=== PATIENT | male | born 2000 | race Caucasian/White ===

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

== ENCOUNTER → 2022-08-24 | Outpatient (CLI) | payer OTHER ==
[~2022-08-24] MED LIST changes: -ACET-838 PO; +ACET32TAB PO
[2022-08-24 14:08] LABS: HEMATOCRIT 47.5 % (42.0-52.0); HEMOGLOBIN 15.7 g/dl (13.5-17.5); MEAN CORPUSCULAR HGB CONC 33.1 g/dl (32.0-36.5); MEAN CORPUSCULAR VOLUME 84.7 fl (80.0-96.0); PLATELET COUNT, AUTOMATED 296 10^3/uL (150-450); RED BLOOD COUNT 5.61 10^6/uL (4.30-6.10); WHITE BLOOD COUNT 9.2 10^3/uL (4.0-10.0)
[2022-08-24 14:36] LABS: HEMOGLOBIN A1c 4.7 % (4.0-6.0)
[2022-08-24 14:38] LABS: ALBUMIN 4.5 G/DL (3.2-5.2); ALKALINE PHOSPHATASE 77 U/L (46-116); ALT/SGPT 15 U/L (7.0-40); AST/SGOT 22 U/L (<34); BILIRUBIN,TOTAL 0.5 MG/DL (0.3-1.2); BLOOD UREA NITROGEN 11 MG/DL (9-23); CALCIUM LEVEL 9.7 MG/DL (8.5-10.1); CARBON DIOXIDE LEVEL 26 MMOL/L (20-31); CHLORIDE LEVEL 105 MMOL/L (98-107); CHOLESTEROL LEVEL 129 MG/DL (<200); CHOLESTEROL RISK RATIO 3.01 (<5); CREATININE FOR GFR 0.94 MG/DL (0.70-1.30); GLUCOSE, FASTING 86 MG/DL (60-100); HDL CHOLESTEROL 42.8 MG/DL (>40); LDL CHOLESTEROL 72.4 MG/DL (<100); NON-HDL-C 86 MG/DL; POTASSIUM SERUM 3.9 MMOL/L (3.5-5.1); SODIUM LEVEL 140 MMOL/L (136-145); TOTAL 25(OH) VITAMIN D 36.6 NG/ML (20.0-100.0); TOTAL PROTEIN 7.3 G/DL (5.7-8.2); TRIGLYCERIDES LEVEL 69 MG/DL (<150)
[2022-08-24 14:39] LABS: THYROID STIMULATING HORMONE 1.478 uIU/ML (0.48-4.17)
== END ==
LOC: M LAB 13:44
PROVIDERS: ATTEND Family Medicine
DX: D64.9 Anemia, unspecified (principal); R53.83 Other fatigue

== ENCOUNTER 2022-11-20 19:11 | Emergency (ER) | payer OTHER ==
[~2022-11-20] VITALS: Ht 177.8 cm; Wt 74.7 kg
[2022-11-20 21:04] LABS: BASO % 0.3 % (0.0-1.0); EOS # 0.1 10^3/uL (0.0-0.5); EOS % 0.5 % (0.0-3.0); HEMATOCRIT 47.3 % (42.0-52.0); HEMOGLOBIN 16.2 g/dl (13.5-17.5); LYMPH % 17.2 % (24.0-44.0); MEAN CORPUSCULAR HEMOGLOBIN 27.9 pg (27.0-33.0); MEAN CORPUSCULAR HGB CONC 34.2 g/dl (32.0-36.5); MEAN CORPUSCULAR VOLUME 81.4 fl (80.0-96.0); MONO # 0.9 10^3/uL (0.0-0.8); MONO % 7.8 % (2.0-8.0); NEUTROPHILS # 8.7 10^3/uL (1.5-8.5); NEUTROPHILS % 73.9 % (36.0-66.0); PLATELET COUNT, AUTOMATED 310 10^3/uL (150-450); RED BLOOD COUNT 5.81 10^6/uL (4.30-6.10); WHITE BLOOD COUNT 11.8 10^3/uL (4.0-10.0)
[2022-11-20 21:22] LABS: LIPASE 24 U/L (12-53)
[2022-11-20 21:23] LABS: CK-MB VALUE MASS < 1.0 NG/ML (<3.6)
[2022-11-20 21:25] LABS: ALBUMIN 4.9 G/DL (3.2-5.2); ALKALINE PHOSPHATASE 79 U/L (46-116); ALT/SGPT 15 U/L (7.0-40); AST/SGOT < 8 U/L (<34); BILIRUBIN,DIRECT 0.2 MG/DL (<0.4); BILIRUBIN,TOTAL 0.6 MG/DL (0.3-1.2); BLOOD UREA NITROGEN 11 MG/DL (9-23); CALCIUM LEVEL 9.8 MG/DL (8.5-10.1); CARBON DIOXIDE LEVEL 26 MMOL/L (20-31); CHLORIDE LEVEL 103 MMOL/L (98-107); CREATININE FOR GFR 0.94 MG/DL (0.70-1.30); GLUCOSE, FASTING 86 MG/DL (60-100); POTASSIUM SERUM 3.8 MMOL/L (3.5-5.1); SODIUM LEVEL 139 MMOL/L (136-145); TOTAL PROTEIN 7.9 G/DL (5.7-8.2)
[2022-11-20 21:26] LABS: THYROID STIMULATING HORMONE 1.922 uIU/ML (0.48-4.17)
[2022-11-20 21:32] LABS: CPK CREATINE PHOSPHOKINASE 170 U/L (46-171); MB/CK RELATIVE INDEX 0.58 (< OR =4)
[2022-11-20 22:34] LABS: CK-MB VALUE MASS < 1.0 NG/ML (<3.6)
[2022-11-20 22:51] LABS: CPK CREATINE PHOSPHOKINASE 168 U/L (46-171); MB/CK RELATIVE INDEX 0.59 (< OR =4)
[2022-11-21 00:33] LABS: CPK CREATINE PHOSPHOKINASE 112 U/L (46-171)
[2022-11-21 00:35] LABS: CK-MB VALUE MASS < 1.0 NG/ML (<3.6); MB/CK RELATIVE INDEX 0.89 (< OR =4)
[2022-11-21 01:11] VITALS: BP 132/67
== END 2022-11-21 01:58 | disposition home or self-care (01) ==
LOC: M ED 19:11
DX: R07.9 Chest pain, unspecified (principal); F17.200 Nicotine dependence, unspecified, uncomplicated

== ENCOUNTER → 2023-01-08 | Outpatient (CLI) | payer MEDICAID ==
[~2023-01-08] MED LIST changes: +CITA20TA6 PO; +MELA5CAP2 PO; +PROP40TA62 PO
== END ==
LOC: M OUTALCOH 09:06
PROVIDERS: ATTEND Psychiatry & Neurology Psychiatry
DX: F10.10 Alcohol abuse, uncomplicated (principal)

== ENCOUNTER 2023-01-11 16:39 | Inpatient (IN) | payer MEDICAID ==
[~2023-01-11] VITALS: Ht 180.3 cm; Wt 71.1 kg
[~2023-01-11 16:39] MED LIST changes: -CITA20TA6 PO; -MELA5CAP2 PO; -PROP40TA62 PO
[2023-01-11 17:40] LABS: HEMATOCRIT 43.2 % (42.0-52.0); HEMOGLOBIN 14.9 g/dl (13.5-17.5); MEAN CORPUSCULAR HEMOGLOBIN 27.9 pg (27.0-33.0); MEAN CORPUSCULAR HGB CONC 34.5 g/dl (32.0-36.5); MEAN CORPUSCULAR VOLUME 80.9 fl (80.0-96.0); PLATELET COUNT, AUTOMATED 398 10^3/uL (150-450); RED BLOOD COUNT 5.34 10^6/uL (4.30-6.10)
[2023-01-11] MEDS ORDERED: HALOPERIDOL 5MG/ML 1ML VIAL As Ordered ONE (17:49)
[2023-01-11] MEDS ORDERED: LORazepam 2 MG/ML 1ML VIAL IM STA (17:49)
[2023-01-11] MEDS ORDERED: HALOPERIDOL 5MG/ML 1ML VIAL IM ONE (17:50)
[2023-01-11] MEDS ORDERED: LORazepam 2 MG/ML 1ML VIAL As Ordered ONE (17:50)
[2023-01-11 18:02] LABS: ETHYL ALCOHOL (ETHANOL) 0.191 % (0.000-0.010)
[2023-01-11 18:04] LABS: ACETAMINOPHEN LEVEL < 2.0 UG/ML (10.0-20.0); ALKALINE PHOSPHATASE 75 U/L (46-116); ALT/SGPT 31 U/L (7.0-40); AST/SGOT 35 U/L (<34); BILIRUBIN,DIRECT 0.2 MG/DL (<0.4); BILIRUBIN,TOTAL 0.6 MG/DL (0.3-1.2); BLOOD UREA NITROGEN 8 MG/DL (9-23); CARBON DIOXIDE LEVEL 21 MMOL/L (20-31); CHLORIDE LEVEL 103 MMOL/L (98-107); GLOMERULAR FILTRATION RATE > 60.0 (>60); GLUCOSE, FASTING 107 MG/DL (60-100); POTASSIUM SERUM 3.7 MMOL/L (3.5-5.1); SALICYLATE LEVEL < 3.0 MG/DL (<30); SODIUM LEVEL 141 MMOL/L (136-145); TOTAL PROTEIN 7.6 G/DL (5.7-8.2)
[2023-01-11 18:06] LABS: THYROID STIMULATING HORMONE 2.926 uIU/ML (0.55-4.78)
[2023-01-11 18:51] LABS: AMPHETAMINES LEVEL URINE NEGATIVE (NEGATIVE); BENZODIAZEPINES URINE NEGATIVE (NEGATIVE); METHADONE URINE NEGATIVE (NEGATIVE); OPIATES URINE NEGATIVE (NEGATIVE); PHENCYCLIDINE URINE NEGATIVE (NEGATIVE)
[2023-01-11 18:52] LABS: BARBITURATES URINE NEGATIVE (NEGATIVE); COCAINE METABOLITE URINE NEGATIVE (NEGATIVE)
[2023-01-11 18:55] LABS: CANNABINOIDS URINE POSITIVE (NEGATIVE)
[2023-01-11] MEDS ORDERED: CITA20TA6 PO (19:19)
[2023-01-11] MEDS ORDERED: PROP40TA62 PO (19:20)
[2023-01-12] MEDS ORDERED: MELA5CAP2 PO (06:20)
[2023-01-12] MEDS ORDERED: HOME MED LIST COMPLETE! XX SCH (06:20)
[2023-01-12] MEDS: THIAMINE 100 MG TAB PO SCH ×2 (09:00→20:46)
[2023-01-12] MEDS ORDERED: LORazepam 2 MG TAB PO PRN (12:45)
[2023-01-12] MEDS: CitaloPRAM (CeleXA) 20 MG TAB PO SCH (17:43)
[2023-01-12] MEDS: FOLIC ACID 1MG TAB PO SCH (17:43)
[2023-01-12] MEDS: MULTIVITAMINS/MINERALS THERAP 1 TAB PO SCH (17:43)
[2023-01-12] MEDS: traZODone 50 MG TAB PO PRN (20:46)
[2023-01-12 22:30] VITALS: BP 141/80
[2023-01-13 06:31] VITALS: BP 148/72; TEMP 98.4; O2SAT 98
[2023-01-13 06:34] VITALS: BP 148/72
[2023-01-13] MEDS: FOLIC ACID 1MG TAB PO SCH (08:18)
[2023-01-13] MEDS: CitaloPRAM (CeleXA) 20 MG TAB PO SCH (08:18)
[2023-01-13] MEDS: MULTIVITAMINS/MINERALS THERAP 1 TAB PO SCH (08:18)
[2023-01-13] MEDS: THIAMINE 100 MG TAB PO SCH ×2 (08:18→20:36)
[2023-01-13 10:02] LABS: HEPATITIS B SURFACE ANTIGEN NEGATIVE (NEGATIVE)
[2023-01-13 10:23] LABS: HEPATITIS C VIRUS ABY INDEX 0.1 INDEX (<0.8)
[2023-01-13 10:24] LABS: HEPATITIS B CORE ANTIBODY IGM NEGATIVE (NEGATIVE)
[2023-01-13 14:41] VITALS: BP 138/89
[2023-01-13 15:50] VITALS: BP 138/89; TEMP 98; O2SAT 100
[2023-01-13] MEDS: ARIPiprazole 2 MG TAB PO SCH (20:36)
[2023-01-13] MEDS: traZODone 50 MG TAB PO PRN (21:16)
[2023-01-14 05:37] VITALS: BP 132/74
[2023-01-14] MEDS ORDERED: ONDANSETRON 4MG ORAL DISINTEGRATING TAB PO PRN (06:00)
[2023-01-14 06:44] LABS: CHOLESTEROL RISK RATIO 1.9 (<5); HDL CHOLESTEROL 57.8 MG/DL (>40); NON-HDL-C 52.2 MG/DL
[2023-01-14] MEDS: FOLIC ACID 1MG TAB PO SCH (09:07)
[2023-01-14] MEDS: THIAMINE 100 MG TAB PO SCH (09:07)
[2023-01-14] MEDS: MULTIVITAMINS/MINERALS THERAP 1 TAB PO SCH (09:07)
[2023-01-14] MEDS: CitaloPRAM (CeleXA) 20 MG TAB PO SCH (09:07)
[2023-01-14 18:37] VITALS: BP 139/97; TEMP 98.2; O2SAT 100
[2023-01-14] MEDS: ARIPiprazole 2 MG TAB PO SCH (20:05)
[2023-01-14] MEDS: traZODone 50 MG TAB PO PRN (22:15)
[2023-01-14] MEDS: diphenhydrAMINE 25MG CAP PO PRN (22:15)
[2023-01-15 06:01] VITALS: BP 137/77; TEMP 98; O2SAT 100
[2023-01-15] MEDS: FOLIC ACID 1MG TAB PO SCH (08:08)
[2023-01-15] MEDS: CitaloPRAM (CeleXA) 20 MG TAB PO SCH (08:08)
[2023-01-15] MEDS ORDERED: PILL CUTTER 1 EACH XX PRN (09:30)
[2023-01-15] MEDS: busPIRone 5 MG TAB PO SCH ×2 (09:48→21:29)
[2023-01-15 16:10] VITALS: BP 134/78; TEMP 97.9; O2SAT 100
[2023-01-15] MEDS: diphenhydrAMINE 25MG CAP PO PRN (16:32)
[2023-01-15] MEDS: IBUPROFEN 400MG TAB PO PRN (16:45)
[2023-01-15] MEDS: traZODone 50 MG TAB PO PRN (22:57)
[2023-01-16 06:20] VITALS: BP 154/89; TEMP 96.7; O2SAT 97
[2023-01-16] MEDS: FOLIC ACID 1MG TAB PO SCH (08:26)
[2023-01-16] MEDS: CitaloPRAM (CeleXA) 20 MG TAB PO SCH (08:26)
[2023-01-16] MEDS: busPIRone 5 MG TAB PO SCH ×2 (08:27→20:48)
[2023-01-16] MEDS: IBUPROFEN 400MG TAB PO PRN (11:02)
[2023-01-16] MEDS: diphenhydrAMINE 25MG CAP PO PRN (15:31)
[2023-01-16 16:19] VITALS: BP 148/91; TEMP 97.8; O2SAT 100
[2023-01-16] MEDS: traZODone 50 MG TAB PO PRN (23:06)
[2023-01-17 06:40] VITALS: BP 146/80; TEMP 96.9; O2SAT 100
[2023-01-17] MEDS: FOLIC ACID 1MG TAB PO SCH (08:20)
[2023-01-17] MEDS: busPIRone 5 MG TAB PO SCH (08:20)
[2023-01-17] MEDS: CitaloPRAM (CeleXA) 20 MG TAB PO SCH (08:21)
[2023-01-17] MEDS: diphenhydrAMINE 25MG CAP PO PRN ×2 (10:32→22:43)
[2023-01-17 11:30] VITALS: BP 162/90; O2SAT 100
[2023-01-17] MEDS: cloNIDine 0.1MG TABLET PO PRN ×2 (12:06→19:13)
[2023-01-17 16:24] VITALS: BP 140/88; TEMP 97.6; O2SAT 100
[2023-01-17 19:12] VITALS: BP 160/98
[2023-01-17] MEDS: traZODone 50 MG TAB PO PRN (20:45)
[2023-01-17] MEDS: busPIRone 10 MG TAB PO SCH (20:45)
[2023-01-17] MEDS: IBUPROFEN 400MG TAB PO PRN (22:43)
[2023-01-18 06:33] VITALS: BP 139/63; TEMP 97.9; O2SAT 99
[2023-01-18] MEDS: busPIRone 10 MG TAB PO SCH ×2 (08:07→20:00)
[2023-01-18] MEDS: FOLIC ACID 1MG TAB PO SCH (08:07)
[2023-01-18] MEDS ORDERED: CitaloPRAM (CeleXA) 10 MG TABLET PO SCH (09:00)
[2023-01-18] MEDS: OLANZapine 2.5MG TABLET PO SCH ×2 (10:21→20:00)
[2023-01-18] MEDS: OLANZapine ORAL DISINTEGRATING TAB 5MG PO PRN (12:11)
[2023-01-18 18:00] VITALS: BP 136/76; TEMP 97.6; O2SAT 100
[2023-01-18] MEDS: MOM 30ML SUSPENSION UDC PO PRN (20:00)
[2023-01-18] MEDS: traZODone 50 MG TAB PO PRN (22:31)
[2023-01-19 05:41] VITALS: BP 148/88; TEMP 97; O2SAT 97
[2023-01-19] MEDS: busPIRone 10 MG TAB PO SCH ×2 (08:05→20:01)
[2023-01-19] MEDS: FOLIC ACID 1MG TAB PO SCH (08:06)
[2023-01-19] MEDS: OLANZapine 2.5MG TABLET PO SCH (08:06)
[2023-01-19] MEDS ORDERED: CitaloPRAM (CeleXA) 10 MG TABLET PO SCH (09:00)
[2023-01-19] MEDS: OLANZapine ORAL DISINTEGRATING TAB 5MG PO PRN ×2 (09:19→15:46)
[2023-01-19] MEDS ORDERED: DIVALPROEX 250MG *ER* TAB PO PRN (09:50)
[2023-01-19 17:45] VITALS: BP 140/70; TEMP 97.2
[2023-01-19] MEDS ORDERED: OLANZapine 2.5MG TABLET PO SCH (21:00)
[2023-01-19] MEDS: MAALOX 30 ML SUSP *UDC PO PRN (21:31)
[2023-01-19] MEDS: traZODone 50 MG TAB PO PRN (22:08)
[2023-01-20 05:54] VITALS: BP 131/90; TEMP 97.8; O2SAT 100
[2023-01-20] MEDS: busPIRone 10 MG TAB PO SCH ×2 (08:05→20:08)
[2023-01-20] MEDS: FOLIC ACID 1MG TAB PO SCH (08:05)
[2023-01-20] MEDS: OLANZapine ORAL DISINTEGRATING TAB 5MG PO PRN ×2 (08:05→16:47)
[2023-01-20] MEDS: DIVALPROEX 250MG *ER* TAB PO SCH (09:30)
[2023-01-20] MEDS: MAALOX 30 ML SUSP *UDC PO PRN (14:05)
[2023-01-20 17:48] VITALS: BP 150/89; TEMP 97.4
[2023-01-20 19:10] VITALS: BP 157/80
[2023-01-20] MEDS: cloNIDine 0.1MG TABLET PO PRN (19:10)
[2023-01-20] MEDS: OLANZapine 2.5MG TABLET PO SCH (20:08)
[2023-01-20] MEDS: traZODone 50 MG TAB PO PRN (20:59)
[2023-01-20] MEDS ORDERED: diphenhydrAMINE 50MG CAP PO ONE (21:00)
[2023-01-20] MEDS ORDERED: LORazepam 2 MG TAB PO ONE (21:00)
[2023-01-21] MEDS: DIVALPROEX 250MG *ER* TAB PO SCH (08:29)
[2023-01-21] MEDS: busPIRone 10 MG TAB PO SCH ×2 (08:29→20:30)
[2023-01-21] MEDS: FOLIC ACID 1MG TAB PO SCH (08:29)
[2023-01-21] MEDS: BENZTROPINE 1 MG TAB PO SCH ×2 (10:47→20:30)
[2023-01-21 16:45] VITALS: BP 152/94; TEMP 97.4; O2SAT 98
[2023-01-21] MEDS: OLANZapine ORAL DISINTEGRATING TAB 5MG PO PRN (19:23)
[2023-01-21] MEDS: OLANZapine 2.5MG TABLET PO SCH (20:30)
[2023-01-21] MEDS: MAALOX 30 ML SUSP *UDC PO PRN (21:27)
[2023-01-21] MEDS: traZODone 50 MG TAB PO PRN (22:04)
[2023-01-22 06:26] VITALS: BP 108/62; TEMP 97.7; O2SAT 97
[2023-01-22] MEDS: BENZTROPINE 1 MG TAB PO SCH ×2 (08:13→20:02)
[2023-01-22] MEDS: busPIRone 10 MG TAB PO SCH ×2 (08:13→20:02)
[2023-01-22] MEDS: OLANZapine ORAL DISINTEGRATING TAB 5MG PO PRN ×2 (08:14→21:28)
[2023-01-22] MEDS: DIVALPROEX 250MG *ER* TAB PO SCH (08:14)
[2023-01-22] MEDS: FOLIC ACID 1MG TAB PO SCH (08:14)
[2023-01-22 17:52] VITALS: BP 162/83; TEMP 97.9; O2SAT 96
[2023-01-22] MEDS: MAALOX 30 ML SUSP *UDC PO PRN (19:36)
[2023-01-22] MEDS: OLANZapine 2.5MG TABLET PO SCH (20:02)
[2023-01-22] MEDS: traZODone 50 MG TAB PO PRN (22:18)
[2023-01-22] MEDS: ACETAMINOPHEN TAB 650MG DOSE (2X325MG) PO PRN (22:19)
[2023-01-23 06:22] VITALS: BP 127/65; TEMP 97.8; O2SAT 100
[2023-01-23] MEDS: DIVALPROEX 250MG *ER* TAB PO SCH (08:02)
[2023-01-23] MEDS: BENZTROPINE 1 MG TAB PO SCH ×2 (08:02→20:15)
[2023-01-23] MEDS: FOLIC ACID 1MG TAB PO SCH (08:03)
[2023-01-23] MEDS: busPIRone 10 MG TAB PO SCH ×2 (08:03→20:15)
[2023-01-23] MEDS: OLANZapine ORAL DISINTEGRATING TAB 5MG PO PRN (11:25)
[2023-01-23 18:00] VITALS: BP 144/84; TEMP 97.1
[2023-01-23] MEDS: OLANZapine 2.5MG TABLET PO SCH (20:15)
[2023-01-23] MEDS: traZODone 50 MG TAB PO PRN (22:16)
[2023-01-23] MEDS: IBUPROFEN 400MG TAB PO PRN (22:17)
[2023-01-24 06:47] VITALS: BP 155/71; TEMP 97.8; O2SAT 99
[2023-01-24] MEDS: DIVALPROEX 250MG *ER* TAB PO SCH (08:02)
[2023-01-24] MEDS: busPIRone 10 MG TAB PO SCH ×2 (08:02→20:18)
[2023-01-24] MEDS: BENZTROPINE 1 MG TAB PO SCH ×2 (08:02→20:18)
[2023-01-24] MEDS: FOLIC ACID 1MG TAB PO SCH (08:02)
[2023-01-24] MEDS: OLANZapine ORAL DISINTEGRATING TAB 5MG PO PRN (11:36)
[2023-01-24 18:00] VITALS: BP 150/78; TEMP 98.1
[2023-01-24] MEDS: OLANZapine 2.5MG TABLET PO SCH (20:18)
[2023-01-24] MEDS: traZODone 50 MG TAB PO PRN (21:58)
[2023-01-25 06:45] VITALS: BP 125/74; TEMP 97.6; O2SAT 96
[2023-01-25] MEDS: busPIRone 10 MG TAB PO SCH ×2 (08:13→20:03)
[2023-01-25] MEDS: DIVALPROEX 250MG *ER* TAB PO SCH (08:13)
[2023-01-25] MEDS: FOLIC ACID 1MG TAB PO SCH (08:13)
[2023-01-25] MEDS: BENZTROPINE 1 MG TAB PO SCH ×2 (08:13→20:03)
[2023-01-25 15:00] VITALS: BP 139/80; TEMP 98.6; O2SAT 96
[2023-01-25] MEDS: OLANZapine 5 MG TAB PO SCH (20:03)
[2023-01-25] MEDS: ACETAMINOPHEN TAB 650MG DOSE (2X325MG) PO PRN (21:52)
[2023-01-25] MEDS: traZODone 50 MG TAB PO PRN (21:52)
[2023-01-26] MEDS: IBUPROFEN 400MG TAB PO PRN (05:36)
[2023-01-26 06:48] VITALS: BP 143/90; TEMP 97.6; O2SAT 98
[2023-01-26] MEDS: busPIRone 10 MG TAB PO SCH ×2 (08:44→20:08)
[2023-01-26] MEDS: FOLIC ACID 1MG TAB PO SCH (08:44)
[2023-01-26] MEDS: DIVALPROEX 250MG *ER* TAB PO SCH (08:44)
[2023-01-26] MEDS: BENZTROPINE 1 MG TAB PO SCH ×2 (08:44→20:08)
[2023-01-26 16:42] VITALS: BP 140/88; TEMP 98.3; O2SAT 100
[2023-01-26] MEDS: OLANZapine 5 MG TAB PO SCH (20:09)
[2023-01-26] MEDS: traZODone 50 MG TAB PO PRN (22:36)
[2023-01-27] MEDS: MOM 30ML SUSPENSION UDC PO PRN (05:52)
[2023-01-27 06:43] VITALS: BP 150/71; TEMP 97.1; O2SAT 100
[2023-01-27] MEDS: BENZTROPINE 1 MG TAB PO SCH ×2 (08:29→20:09)
[2023-01-27] MEDS: busPIRone 10 MG TAB PO SCH ×2 (08:29→20:09)
[2023-01-27] MEDS: FOLIC ACID 1MG TAB PO SCH (08:29)
[2023-01-27] MEDS ORDERED: DIVALPROEX 250MG *ER* TAB PO SCH (09:00)
[2023-01-27] MEDS: ACETAMINOPHEN TAB 650MG DOSE (2X325MG) PO PRN (13:59)
[2023-01-27] MEDS ORDERED: PREPARATION H OINTMENT (HEMORRHOID) PR PRN (16:40)
[2023-01-27 16:42] VITALS: BP 136/64; TEMP 98.3; O2SAT 100
[2023-01-27] MEDS: OLANZapine 5 MG TAB PO SCH (20:09)
[2023-01-28] MEDS: IBUPROFEN 400MG TAB PO PRN ×2 (04:22→20:16)
[2023-01-28 06:24] VITALS: BP 135/67; TEMP 97.9; O2SAT 100
[2023-01-28] MEDS: busPIRone 10 MG TAB PO SCH ×2 (08:28→20:14)
[2023-01-28] MEDS: FOLIC ACID 1MG TAB PO SCH (08:28)
[2023-01-28] MEDS: BENZTROPINE 1 MG TAB PO SCH ×2 (08:28→20:14)
[2023-01-28] MEDS: DIVALPROEX 500MG *ER* TAB PO SCH (08:58)
[2023-01-28 18:52] VITALS: BP 138/78; TEMP 97.6
[2023-01-28] MEDS: OLANZapine 5 MG TAB PO SCH (20:14)
[2023-01-28] MEDS: MAALOX 30 ML SUSP *UDC PO PRN (22:12)
[2023-01-28] MEDS: traZODone 50 MG TAB PO PRN (22:32)
[2023-01-29 06:15] VITALS: BP 135/82; TEMP 97.5; O2SAT 99
[2023-01-29] MEDS: DIVALPROEX 500MG *ER* TAB PO SCH (08:07)
[2023-01-29] MEDS: busPIRone 10 MG TAB PO SCH (08:07)
[2023-01-29] MEDS: FOLIC ACID 1MG TAB PO SCH (08:07)
[2023-01-29] MEDS: BENZTROPINE 1 MG TAB PO SCH (08:07)
[2023-01-29] MEDS ORDERED: TRAZ-252 PO (12:08)
[2023-01-29] MEDS ORDERED: OLAN15TA13 PO (12:08)
[2023-01-29] MEDS ORDERED: BENZ1TAB5 PO (12:08)
[2023-01-29] MEDS ORDERED: DEPA500T2 PO (12:08)
[2023-01-29] MEDS ORDERED: BUSP10TA PO (12:08)
[2023-01-29] MEDS ORDERED: HALO5TAB33 PO (12:08)
== END 2023-01-29 14:34 | disposition home or self-care (01) | DRG 753 ==
LOC: M ED 16:39 → M ED INP 01-12 12:42 → M PSY 01-12 16:06
PROVIDERS: ADMIT Student in an Organized Health Care Education/Training Program; ATTEND Student in an Organized Health Care Education/Training Program
DX: F31.60 Bipolar disorder, current episode mixed, unspecified (principal); F43.9 Reaction to severe stress, unspecified; F60.89 Other specific personality disorders; F41.9 Anxiety disorder, unspecified; F12.10 Cannabis abuse, uncomplicated; G47.00 Insomnia, unspecified; R45.851 Suicidal ideations; R45.850 Homicidal ideations; F17.210 Nicotine dependence, cigarettes, uncomplicated; Z81.8 Family history of other mental and behavioral disorders; R94.5 Abnormal results of liver function studies; F10.10 Alcohol abuse, uncomplicated; Z20.822 Contact with and (suspected) exposure to COVID-19; Z79.899 Other long term (current) drug therapy; Z78.1 Physical restraint status

== ENCOUNTER 2023-12-02 14:56 | Inpatient (IN) | payer MEDICAID, OTHER ==
[~2023-12-02] VITALS: Ht 180.3 cm; Wt 89.9 kg
[~2023-12-02 14:56] MED LIST changes: +BENZ1TAB5 PO; +BUSP10TA PO; +CITA20TA6 PO; +DEPA500T2 PO; +HALO5TAB33 PO; +MELA5CAP2 PO; +OLAN15TA13 PO; +PROP40TA62 PO; +TRAZ-252 PO
[2023-12-02 15:52] LABS: HEMATOCRIT 47.5 % (42.0-52.0); HEMOGLOBIN 16.1 g/dl (13.5-17.5); MEAN CORPUSCULAR HEMOGLOBIN 27.2 pg (27.0-33.0); MEAN CORPUSCULAR HGB CONC 33.9 g/dl (32.0-36.5); MEAN CORPUSCULAR VOLUME 80.4 fl (80.0-96.0); PLATELET COUNT, AUTOMATED 338 10^3/uL (150-450); RED BLOOD COUNT 5.91 10^6/uL (4.30-6.10); WHITE BLOOD COUNT 6.4 10^3/uL (4.0-10.0)
[2023-12-02 16:17] LABS: AMPHETAMINES LEVEL URINE NEGATIVE (NEGATIVE)
[2023-12-02 16:18] LABS: BARBITURATES URINE NEGATIVE (NEGATIVE); COCAINE METABOLITE URINE NEGATIVE (NEGATIVE)
[2023-12-02 16:19] LABS: BENZODIAZEPINES URINE NEGATIVE (NEGATIVE); CANNABINOIDS URINE POSITIVE (NEGATIVE); METHADONE URINE NEGATIVE (NEGATIVE); OPIATES URINE NEGATIVE (NEGATIVE); PHENCYCLIDINE URINE NEGATIVE (NEGATIVE)
[2023-12-02 16:20] LABS: ETHYL ALCOHOL (ETHANOL) 0.003 % (0.000-0.010)
[2023-12-02 16:22] LABS: ALBUMIN 4.7 G/DL (3.2-5.2); ALKALINE PHOSPHATASE 71 U/L (46-116); ALT/SGPT 21 U/L (7.0-40); AST/SGOT 15 U/L (<34); BILIRUBIN,DIRECT 0.2 MG/DL (<0.4); BILIRUBIN,TOTAL 0.5 MG/DL (0.3-1.2); BLOOD UREA NITROGEN 6 MG/DL (9-23); CALCIUM LEVEL 10.2 MG/DL (8.5-10.1); CARBON DIOXIDE LEVEL 27 MMOL/L (20-31); CHLORIDE LEVEL 102 MMOL/L (98-107); CREATININE FOR GFR 0.81 MG/DL (0.70-1.30); GLOMERULAR FILTRATION RATE > 60.0 (>60); GLUCOSE, FASTING 113 MG/DL (60-100); POTASSIUM SERUM 3.6 MMOL/L (3.5-5.1); SALICYLATE LEVEL < 3.0 MG/DL (<30); SODIUM LEVEL 139 MMOL/L (136-145); TOTAL PROTEIN 7.6 G/DL (5.7-8.2)
[2023-12-02 16:23] LABS: THYROID STIMULATING HORMONE 1.048 uIU/ML (0.55-4.78)
[2023-12-02] MEDS ORDERED: MOM 30ML SUSPENSION UDC PO PRN (18:00)
[2023-12-02] MEDS ORDERED: IBUPROFEN 400MG TAB PO PRN (18:00)
[2023-12-02] MEDS ORDERED: diphenhydrAMINE 25MG CAP PO PRN (18:00)
[2023-12-02] MEDS ORDERED: OLANZapine ORAL DISINTEGRATING TAB 5MG PO PRN (18:00)
[2023-12-02] MEDS ORDERED: MAALOX 30 ML SUSP *UDC PO PRN (18:00)
[2023-12-02] MEDS ORDERED: ACETAMINOPHEN TAB 650MG DOSE (2X325MG) PO PRN (18:00)
[2023-12-02] MEDS ORDERED: HOME MED LIST COMPLETE! XX SCH (19:25)
[2023-12-02 22:04] VITALS: BP 132/74; TEMP 98.2; O2SAT 100
[2023-12-02] MEDS: traZODone 50 MG TAB PO PRN (23:14)
[2023-12-03 06:11] VITALS: BP 127/77; TEMP 98.6
[2023-12-03] MEDS: PALIPERIDONE 3MG ER TAB (INVEGA) PO SCH (11:17)
[2023-12-03] MEDS: DIVALPROEX 250MG *ER* TAB PO SCH (11:17)
[2023-12-03] MEDS: INFLUENZA QUADRIVALENT PF VACCINE 0.5ML SYRINGE IM.IMMUN ONE (15:39)
[2023-12-03 17:19] VITALS: BP 142/82; TEMP 98.4; O2SAT 100
[2023-12-04 06:25] VITALS: BP 114/55; TEMP 98.2; O2SAT 99
[2023-12-04 07:35] LABS: CHOLESTEROL RISK RATIO 3.2 (<5); HDL CHOLESTEROL 29.6 MG/DL (>40); LDL CHOLESTEROL 53.6 MG/DL (<100); NON-HDL-C 65.4 MG/DL
[2023-12-04] MEDS: PALIPERIDONE PAL 234MG/1.5ML INJ (INVEGA)(FREE PSY INPT ONLY) IM ONE (13:07)
[2023-12-04 15:49] VITALS: BP 135/78; TEMP 98.3; O2SAT 96
[2023-12-05 06:25] VITALS: BP 151/78; TEMP 98.2; O2SAT 98
[2023-12-05] MEDS ORDERED: BENZOCAINE 20% GEL 9GM TUBE (ANBESOL MAX STRENGTH) TOP PRN (17:05)
[2023-12-05 18:11] VITALS: BP 147/87; TEMP 98.2; O2SAT 100
[2023-12-06 06:30] VITALS: BP 160/98; TEMP 97.7; O2SAT 99
[2023-12-06] MEDS: DIVALPROEX 500MG *ER* TAB PO SCH (08:09)
[2023-12-06 18:21] VITALS: BP 138/83; TEMP 98.4
[2023-12-07 06:13] VITALS: BP 135/65; TEMP 97.3; O2SAT 100
[2023-12-07] MEDS ORDERED: ANBE20GE TOP (09:44)
[2023-12-07] MEDS ORDERED: INVE234I IM (09:44)
[2023-12-07] MEDS ORDERED: HYDR-3363 PO (09:44)
[2023-12-07] MEDS: PALIPERIDONE PAL 156MG/1ML INJ(INVEGA)(FREE PSY INPT ONLY) IM ONE (09:55)
== END 2023-12-07 12:43 | disposition home or self-care (01) | DRG 753 ==
LOC: M ED 14:56 → M ED INP 18:00 → M PSY 22:03
PROVIDERS: ADMIT Student in an Organized Health Care Education/Training Program; ATTEND Student in an Organized Health Care Education/Training Program
DX: F31.9 Bipolar disorder, unspecified (principal); F41.9 Anxiety disorder, unspecified; R45.851 Suicidal ideations; F12.10 Cannabis abuse, uncomplicated; F43.9 Reaction to severe stress, unspecified; F17.200 Nicotine dependence, unspecified, uncomplicated; Z56.0 Unemployment, unspecified

== ENCOUNTER → 2024-04-13 | Outpatient (CLI) | payer MEDICAID, OTHER ==
[~2024-04-13] MED LIST changes: +ANBE20GE TOP; +HYDR-3363 PO; +INVE234I IM
[2024-04-13 14:40] LABS: HEMATOCRIT 45.7 % (42.0-52.0); HEMOGLOBIN 15.3 g/dl (13.5-17.5); MEAN CORPUSCULAR HEMOGLOBIN 28.3 pg (27.0-33.0); MEAN CORPUSCULAR HGB CONC 33.5 g/dl (32.0-36.5); MEAN CORPUSCULAR VOLUME 84.6 fl (80.0-96.0); PLATELET COUNT, AUTOMATED 244 10^3/uL (150-450); WHITE BLOOD COUNT 5.8 10^3/uL (4.0-10.0)
[2024-04-13 15:08] LABS: ALBUMIN 3.9 G/DL (3.2-5.2); ALKALINE PHOSPHATASE 81 U/L (46-116); ALT/SGPT 19 U/L (7.0-40); AST/SGOT 12 U/L (<34); BILIRUBIN,TOTAL 0.3 MG/DL (0.3-1.2); BLOOD UREA NITROGEN 12 MG/DL (9-23); CARBON DIOXIDE LEVEL 28 MMOL/L (20-31); CHLORIDE LEVEL 108 MMOL/L (98-107); CHOLESTEROL LEVEL 169 MG/DL (<200); CHOLESTEROL RISK RATIO 3.82 (<5); CREATININE FOR GFR 1.04 MG/DL (0.70-1.30); GLOMERULAR FILTRATION RATE > 60.0 (>60); GLUCOSE, FASTING 90 MG/DL (60-100); HDL CHOLESTEROL 44.2 MG/DL (>40); LDL CHOLESTEROL 103.8 MG/DL (<100); NON-HDL-C 124.8 MG/DL; POTASSIUM SERUM 4.5 MMOL/L (3.5-5.1); SODIUM LEVEL 140 MMOL/L (136-145); TOTAL PROTEIN 7.1 G/DL (5.7-8.2); TRIGLYCERIDES LEVEL 105 MG/DL (<150)
[2024-04-13 15:15] LABS: THYROID STIMULATING HORMONE 3.236 uIU/ML (0.55-4.78)
[2024-04-13 15:16] LABS: TOTAL 25(OH) VITAMIN D 27.7 NG/ML (20.0-100.0)
== END ==
LOC: M LAB 13:49
PROVIDERS: ATTEND Family Medicine
DX: E03.9 Hypothyroidism, unspecified (principal); R53.83 Other fatigue

== ENCOUNTER → 2024-07-24 | Outpatient (CLI) | payer MEDICAID, OTHER ==
[~2024-07-24] MED LIST changes: -OLAN15TA13 PO; +OLAN15TA69 PO
[2024-07-24 10:08] LABS: HEMATOCRIT 41.6 % (42.0-52.0); HEMOGLOBIN 14.4 g/dl (13.5-17.5); MEAN CORPUSCULAR HEMOGLOBIN 28.3 pg (27.0-33.0); MEAN CORPUSCULAR HGB CONC 34.6 g/dl (32.0-36.5); MEAN CORPUSCULAR VOLUME 81.9 fl (80.0-96.0); PLATELET COUNT, AUTOMATED 278 10^3/uL (150-450); RED BLOOD COUNT 5.08 10^6/uL (4.30-6.10); WHITE BLOOD COUNT 8.2 10^3/uL (4.0-10.0)
[2024-07-24 10:30] LABS: HEMOGLOBIN A1c 4.9 % (4.0-6.0)
[2024-07-24 10:32] LABS: THYROID STIMULATING HORMONE 4.615 uIU/ML (0.55-4.78)
[2024-07-24 10:33] LABS: ALBUMIN 3.6 G/DL (3.2-5.2); ALKALINE PHOSPHATASE 81 U/L (40-129); ALT/SGPT 24 U/L (7.0-40); AST/SGOT 12 U/L (<34); BILIRUBIN,TOTAL 0.2 MG/DL (0.3-1.2); BLOOD UREA NITROGEN 15 MG/DL (9-23); CALCIUM LEVEL 10.1 MG/DL (8.5-10.1); CARBON DIOXIDE LEVEL 26 MMOL/L (20-31); CHLORIDE LEVEL 106 MMOL/L (98-107); CHOLESTEROL LEVEL 135 MG/DL (<200); CHOLESTEROL RISK RATIO 3.81 (<5); CREATININE FOR GFR 0.89 MG/DL (0.70-1.30); GLOMERULAR FILTRATION RATE > 60.0 (>60); GLUCOSE, FASTING 92 MG/DL (60-100); HDL CHOLESTEROL 35.4 MG/DL (>40); LDL CHOLESTEROL 62.8 MG/DL (<100); NON-HDL-C 99.6 MG/DL; POTASSIUM SERUM 4.4 MMOL/L (3.5-5.1); SODIUM LEVEL 141 MMOL/L (136-145); TOTAL PROTEIN 6.9 G/DL (5.7-8.2); TRIGLYCERIDES LEVEL 184 MG/DL (<150)
[2024-07-24 10:34] LABS: TOTAL 25(OH) VITAMIN D 52.4 NG/ML (20.0-100.0)
[2024-07-24 10:35] LABS: TESTOSTERONE 138 NG/DL (241-827)
== END ==
LOC: M LAB 09:14
PROVIDERS: ATTEND Family Medicine
DX: D64.9 Anemia, unspecified (principal)

== ENCOUNTER → 2024-08-31 | Outpatient (CLI) | payer OTHER ==
[2024-08-31 11:12] LABS: PSA SCREENING 2.05 NG/ML (< 4.00)
[2024-08-31 11:17] LABS: LUTEINIZING HORMONE 3.4 mIU/ML (1.5-9.3); THYROID STIMULATING HORMONE 8.34 uIU/ML (0.55-4.78)
[2024-08-31 11:18] LABS: FREE T4 1.42 NG/DL (0.89-1.76)
[2024-08-31 11:19] LABS: CORTISOL AM 14.3 UG/DL (4.3-22.4)
== END ==
LOC: M LAB 09:14
PROVIDERS: ATTEND Nurse Practitioner Family
DX: E29.1 Testicular hypofunction (principal)

== ENCOUNTER → 2024-09-14 | Outpatient (CLI) | payer MEDICAID, OTHER | LOC: M LAB 07:39 | PROVIDERS: ATTEND Nurse Practitioner Family | DX: E29.1 Testicular hypofunction (principal) ==

== ENCOUNTER → 2024-10-13 | Outpatient (CLI) | payer OTHER | LOC: M PLARAD 09:13 | PROVIDERS: ATTEND Nurse Practitioner Family | DX: E22.1 Hyperprolactinemia (principal) ==

== ENCOUNTER → 2024-10-20 | Outpatient (CLI) | payer OTHER ==
[2024-10-20 09:48] LABS: PROLACTIN 46.66 NG/ML (2.1-17.7)
[2024-10-20 09:49] LABS: FREE T4 1.14 NG/DL (0.89-1.76); TESTOSTERONE 150 NG/DL (241-827); THYROID STIMULATING HORMONE 4.026 uIU/ML (0.55-4.78)
[2024-10-20 09:51] LABS: THYROGLOBULIN ANTIBODY < 15.0 U/ML (<60.0)
[2024-10-24 10:09] LABS: TESTOSTERONE %FREE+WEAKLY BOUN 39.1 % (9.0-46.0); TESTOSTERONE FREE+WEAKLY BOUND 79.8 ng/dL (40.0-250.0); TESTOSTERONE TOTAL 204 ng/dL (264-916)
== END ==
LOC: M LAB 08:19
PROVIDERS: ATTEND Nurse Practitioner Family
DX: E29.1 Testicular hypofunction (principal)

== ENCOUNTER 2024-12-15 20:01 | Emergency (ER) | payer MEDICAID, OTHER ==
[~2024-12-15] VITALS: Ht 177.8 cm; Wt 103.7 kg
[2024-12-15 20:45] LABS: HEMATOCRIT 42.8 % (42.0-52.0); HEMOGLOBIN 14.4 g/dl (13.5-17.5); MEAN CORPUSCULAR HEMOGLOBIN 28.1 pg (27.0-33.0); MEAN CORPUSCULAR HGB CONC 33.6 g/dl (32.0-36.5); MEAN CORPUSCULAR VOLUME 83.4 fl (80.0-96.0); PLATELET COUNT, AUTOMATED 306 10^3/uL (150-450); RED BLOOD COUNT 5.13 10^6/uL (4.30-6.10); WHITE BLOOD COUNT 9.6 10^3/uL (4.0-10.0)
[2024-12-15 20:54] LABS: CK-MB VALUE MASS < 1.0 NG/ML (<3.6)
[2024-12-15 20:55] LABS: BLOOD UREA NITROGEN 15 MG/DL (9-23); CALCIUM LEVEL 9.2 MG/DL (8.5-10.1); CARBON DIOXIDE LEVEL 31 MMOL/L (20-31); CHLORIDE LEVEL 104 MMOL/L (98-107); CPK CREATINE PHOSPHOKINASE 215 U/L (46-171); CREATININE FOR GFR 0.92 MG/DL (0.70-1.30); GLOMERULAR FILTRATION RATE > 90.0 (>60); GLUCOSE, FASTING 110 MG/DL (60-100); MB/CK RELATIVE INDEX 0.46 (< OR =4); POTASSIUM SERUM 4.2 MMOL/L (3.5-5.1); SODIUM LEVEL 140 MMOL/L (136-145)
[2024-12-16 06:15] VITALS: TEMP 98.1
[2024-12-16 06:30] VITALS: BP 145/73
[2024-12-16 06:45] VITALS: O2SAT 98
== END 2024-12-16 07:45 | disposition home or self-care (01) ==
LOC: M ED 20:01
DX: R07.89 Other chest pain (principal); G47.30 Sleep apnea, unspecified; F20.9 Schizophrenia, unspecified; J30.89 Other allergic rhinitis; Z79.899 Other long term (current) drug therapy

== ENCOUNTER → 2024-12-18 | Outpatient (CLI) | payer OTHER ==
[2024-12-18 08:31] LABS: THYROID STIMULATING HORMONE 3.763 uIU/ML (0.55-4.78)
[2024-12-18 08:32] LABS: FREE T4 1.08 NG/DL (0.89-1.76); PROLACTIN 39.15 NG/ML (2.1-17.7)
== END ==
LOC: M LAB 07:27
PROVIDERS: ATTEND Nurse Practitioner Family
DX: E29.1 Testicular hypofunction (principal)

== ENCOUNTER → 2025-03-09 | Outpatient (CLI) | payer OTHER ==
[2025-03-09 10:19] LABS: CALCIUM LEVEL 9.2 MG/DL (8.5-10.1); CARBON DIOXIDE LEVEL 27 MMOL/L (20-31); CHLORIDE LEVEL 104 MMOL/L (98-107); CREATININE FOR GFR 1.00 MG/DL (0.70-1.30); GLOMERULAR FILTRATION RATE > 90.0 (>60); POTASSIUM SERUM 4.1 MMOL/L (3.5-5.1); SODIUM LEVEL 141 MMOL/L (136-145)
[2025-03-09 10:20] LABS: FREE T4 1.16 NG/DL (0.89-1.76)
[2025-03-09 10:21] LABS: TESTOSTERONE 211 NG/DL (241-827)
== END ==
LOC: M LAB 07:47
PROVIDERS: ATTEND Nurse Practitioner Family
DX: E29.1 Testicular hypofunction (principal)